=== PATIENT | female | born 1990 | race Caucasian/White ===

== ENCOUNTER 2022-03-08 14:52 | Emergency (ER) | payer MEDICAID ==
[~2022-03-08] VITALS: Ht 162.6 cm; Wt 75.0 kg
[2022-03-08 15:08] VITALS: BP 149/96
[2022-03-08] MEDS ORDERED: VISCOUS LIDOCAINE 2% 15 ML UDC PO STA (18:11)
[2022-03-08] MEDS ORDERED: MAGNESIUM/ALUMINUM HYDROXIDE/SIMETHICONE 30ML UDC PO STA (18:11)
[2022-03-08] MEDS ORDERED: ONDANSETRON HCL 4MG TABLET PO ONE (18:15)
[2022-03-08 19:10] LABS: BASOPHILS % 0.2 % (0.0-2.0); EOSINOPHILS % 0.8 % (0.0-5.0); HEMATOCRIT. 39.4 % (36.0-48.0); HEMOGLOBIN. 13.2 g/dL (12.0-16.0); LYMPHOCYTES % 36.4 % (20.0-50.0); MEAN CORPUSCULAR HEMOGLOBIN 28.7 pg (28.0-32.0); MEAN CORPUSCULAR VOLUME 85.6 fL (81.0-99.0); MEAN PLATELET VOLUME 9.6 fl (7.4-10.4); MONOCYTES % 7.4 % (2.0-8.0); NEUTROPHILS % 55.2 % (40.0-76.0); PLATELET 232 x1000/uL (130-400); RED CELL DISTRIBUTION WIDTH 15.2 % (11.6-14.6)
[2022-03-08 19:20] LABS: CHLORIDE 105 mEq/L (98-107)
[2022-03-08 19:25] LABS: HCG SCREEN NEGATIVE
[2022-03-08 20:34] LABS: CLARITY URINE CLEAR (CLEAR); COLOR URINE DARK YELLOW (YELLOW); KETONES URINE 2+ (NEGATIVE); LEUKOCYTE ESTERASE URINE NEGATIVE (NEGATIVE); NITRITE URINE NEGATIVE (NEGATIVE); OCCULT BLOOD URINE NEGATIVE (NEGATIVE); PH URINE 5.5 (4.5-8.0); PROTEIN URINE NEGATIVE (NEGATIVE); SPECIFIC GRAVITY URINE 1.016 (1.005-1.030); UROBILINOGEN URINE 0.2 E.U./dL (0.2-1.0)
== END 2022-03-08 20:54 | disposition left against medical advice (07) ==
LOC: ER 14:52
DX: R10.13 Epigastric pain (principal); R07.89 Other chest pain; M54.89 Other dorsalgia; R06.02 Shortness of breath; R51.9 Headache, unspecified
CPT/HCPCS: 36415; 71045; 76705; 80053; 81003; 81025; 83690; 84443; 84703; 85025; 99285; Q0162